=== PATIENT | female | born 1955 | race Caucasian/White ===

== ENCOUNTER 2019-08-28 10:40 | Outpatient (CLI) | payer MEDICARE, SELFPAY ==
--- NOTE | 2019-08-28 10:50 | MM_ITS ---
WS: [id number] BILATERAL SCREENING DIGITAL MAMMOGRAM WITH CAD HISTORY: SCREENING COMPARISON: 06/30/2016 and 06/20/2015 Bilateral CC and MLO views submitted. Computer aided detection analyzed. Breast composition: There are scattered areas of fibroglandular density. No suspicious masses, microc alcifications or architectural distortion. Stable nodule with scattered coarse calcifications at 12:0 0. No suspicious interval change within the breasts. MM/[place] [id number] IMPRESSION: BI-RADS: 2-Benign FOLLOW UP: 1 Year Follow-up
== END 2019-08-28 10:41 | disposition home or self-care (01) ==
LOC: RADSHAW 10:46
PROVIDERS: Family Provider Family Medicine; PCP Nurse Practitioner Family; Visit Provider Nurse Practitioner Family
DX: Z12.31 Encounter for screening mammogram for malignant neoplasm of breast (principal)
CPT/HCPCS: 77067

== ENCOUNTER 2019-09-28 06:07 | Day surgery (SDC) | payer MEDICARE, SELFPAY ==
[2019-09-27 12:12] VITALS: BMI 24.5
[2019-09-28 06:24] VITALS: BP 145/119; PULSE 112; RESP 18; TEMP 36.7; O2SAT 95
[2019-09-28] MEDS: sodium chloride 0.9% 1,000 ML 30 ML (06:32)
--- NOTE | 2019-09-28 06:54 | PM.HPUD ---
H&P update H&P Update: DATE OF SURGERY/PROCEDURE: 09/28/19 DATE H&P PERFORMED: 09/08/19 H&P UPDATE INFORMATION: H&P completed within last 30 days and No changes to prior documentation PREOP DIAGNOSIS: 1. Hematochezia2. Family history of colon cancer PLANNED PROCEDURE: Operation Date: 09/28/19 07:00 Proposed Procedures p Colonoscopy(Not Applicable) - Gurdeep Morrissey MD Conscious Sedation: Patient reassessed prior to sedation, with no change noted: Yes PHYSICAL EXAM: alert, oriented x 3, clear to auscultation bilaterally and regular rate & rhythm Full H&P Perinent History: Family History: Family History (Updated 09/27/19 @ 12:10 by Jeff Weston LPN) Other Colon cancer
--- NOTE | 2019-09-28 06:57 | ANES.PREANE2 ---
Pre-Anesthetic Assessment Pre-Anesthetic Assessment: Height/Weight: Height 1.7 m Weight 71.214 kg Temp Pulse Resp BP Pulse Ox 98.1 F 112 H 18 145/119 95 09/28/19 06:24 09/28/19 06:24 09/28/19 06:24 09/28/19 06:24 09/28/19 06:24 Preop Diagnosis: 1. Hematochezia2. Family history of colon cancer Proposed Procedure: Operation Date: 09/28/19 07:00 Proposed Procedures p Colonoscopy(Not Applicable) - Gurdeep Morrissey MD Was Beta Leonel taken within 24 hours: N/A Last intake: Intake Last Liquid Date 09/27/19 Last Liquid Time 20:30 Last Solid Date 09/27/19 Last Solid Time 20:30 Social: Social History: No alcohol and No tobacco Exam: Pre-Anes Outpt Exam: alert, oriented x 3, clear to auscultation bilaterally and regular rate & rhythm Airway: Submandibular: WNL Cervical ROM: WNL MP: 2 Dentition: Chipped History/ROS: No significant history except as noted and No significant complaints Pulmonary: Pulmonary: None reported CV/HEM: CV/HEM: None reported : : None reported Hepatic: Hepatic: None reported GI: GI: None reported Metabolic: Metabolic: Thyroid Musc/skel: Musc/skel: None reported Neuropsych: Neuropsych: Seizure Anesthetic Plan: ASA status: 2 Anesthesia: MAC Risk of > 500 ml blood loss (7ml/kg in children): No PFSH Anesthesia PFSH: Family History (Updated 09/27/19 @ 12:10 by Jeff Weston LPN) Other Colon cancer Data Anesthesia Cardiac Studies: No Data to Display
[2019-09-28 07:29] VITALS: BP 112/74; PULSE 86; RESP 18; TEMP 36.3; O2SAT 95
[2019-09-28 07:49] VITALS: BP 114/77; PULSE 83; RESP 18; O2SAT 94
== END 2019-09-28 08:05 | disposition home or self-care (01) ==
PROVIDERS: Family Provider Family Medicine; PCP Nurse Practitioner Family; Visit Provider Family Medicine
PROC: 0DJD8ZZ Inspection of Lower Intestinal Tract, Via Natural or Artificial Opening Endoscopic (ICD-10-PCS; CPT 45378; principal; 2019-09-28 07:00)
DX: K92.1 Melena (principal); Z80.0 Family history of malignant neoplasm of digestive organs; K64.8 Other hemorrhoids; D12.4 Benign neoplasm of descending colon; E78.5 Hyperlipidemia, unspecified; E03.9 Hypothyroidism, unspecified; K21.9 Gastro-esophageal reflux disease without esophagitis; Z82.49 Family history of ischemic heart disease and other diseases of the circulatory system; Z83.3 Family history of diabetes mellitus
CPT/HCPCS: 12345; 45384; 88305; J2001; J2704; J7030

== ENCOUNTER 2019-10-09 19:20 | Emergency (ER) | payer MEDICARE, SELFPAY ==
[2019-10-09 19:33] VITALS: BP 115/87; PULSE 114; RESP 16; TEMP 36.6; O2SAT 98; BMI 25.0
--- NOTE | 2019-10-09 19:46 | ECG_ITS ---
Measurements Intervals [place] Rate: 83 P: 41 OR: 129 QRS: 56 QRSD: 81 T: 5 QT: 353 QTc: 416 SINUS RHYTHM Compared to ECG 08/10/2018 20:13:08 No significant changes Electronically Signed On 10-10-2019 13:18:08 [employer] by Chen Jang M.D. [email or web address]
--- NOTE | 2019-10-09 19:46 | XR_ITS ---
WS: [id number] XR chest 1V portable [id number] REASON FOR EXAM: cough/congestion FINDINGS: The heart and mediastinal interfaces are normal. There are scattered granulomas well calcified in both lung alfred. There is no pneumonia, pleural effusion, pulmonary edema, or mass effect. Mild thickening of the apices particularly the right upper lung but no masses. XR/XR chest 1V portable [id number] IMPRESSION: Granulomatous changes No acute changes in either lung field.
[2019-10-09 20:02] LABS: Basophils % 0.3 %; Eosinophils # 0.1 10^3/uL (0.0-0.8); Hematocrit 47.7 % (37.0-47.0); Hemoglobin 16.4 g/dL (11.5-15.3); Lymphocytes # 2.7 10^3/uL (0.8-4.8); Lymphocytes % 30.1 %; Mean Corpuscular HGB Conc 34.4 g/dL (30.0-36.0); Mean Corpuscular Hemoglobin 28.7 pg (28.0-34.0); Mean Corpuscular Volume 83.4 fL (81-99); Mean Platelet Volume 9.9 fL (7.4-10.4); Monocytes # 0.6 10^3/uL (0.2-0.9); Monocytes % 6.8 %; Neutrophils # 5.5 10^3/uL (1.8-7.7); Neutrophils % 61.7 %; Nucleated Red Blood Cells % 0 %; Platelet Count 344 10^3/cmm (130-400); Red Blood Count 5.72 10^6/uL (4.1-5.3); White Blood Count 8.9 10^3/uL (4.0-10.0)
[2019-10-09 20:18] LABS: Alanine Aminotransferase 24 U/L (0-33); Albumin Level 3.9 g/dL (3.5-5.2); Alkaline Phosphatase 128 IU/L (35-105); Anion Gap 16.8 (5-19); Aspartate Amino Transferase 28 U/L (0-32); Blood Urea Nitrogen 15 mg/dL (8-23); Calcium 10.1 mg/dL (8.5-10.5); Carbon Dioxide 26 mmol/L (22-29); Chloride 93 mmol/L (98-107); Glomerular Filtration Rate 41.1 mL/min (90-130); Glucose 118 mg/dL (65-115); Sodium 133 mmol/L (136-145); Total Bilirubin 0.3 mg/dL (0.15-1.2); Total Protein 7.9 g/dL (6.6-8.7)
[2019-10-09 20:20] LABS: Troponin(5th) Baseline 12 ng/mL (0-10)
[2019-10-09 20:26] LABS: Potassium 2.8 mmol/L (3.5-5.1)
[2019-10-09 20:52] LABS: Magnesium 1.9 mg/dL (1.7-2.3)
[2019-10-09 21:04] VITALS: BP 108/83; PULSE 94; RESP 22; O2SAT 96
--- NOTE | 2019-10-09 21:14 | ED_ITS ---
Entered by Sarah Oliver, acting as scribe for Oct 09, 2019 19:20 HPI - Chest Pain General: Chief Complaint: Chest Pain Stated Complaint: cp Time Seen by Provider: 10/09/19 21:07 History of Present Illness: HPI narrative: Danitza is a nice 64-year-old female who comes in complaining of nauseousness and chest pain for the past 3 to 4 days. The pain is been nearly constant and she describes it as sharp and stabbing in nature in the center of her chest. She relates that she is under a great deal of increased stress recently from things going on in her life. She denies any other associated symptoms such as shortness of breath, diaphoresis, r adiation of her pain, or any other complaints. She denies any of the other exaggerated or alleviating factors. She denies having anything similar in the past. Associated symptoms: Deny abdominal pain, diaphoresis, dyspnea, fever(s), nausea or vomiting Review of Systems General: Reports: other (negative unless marked) Const: Denies: fever, chills, body aches, fatigue, malaise or diaphoresis Eyes: Denies: change in vision or blurry vision ENMT: Denies: throat pain, painful swallowing, hoarseness, ear pain, ear discharge, Change in hearing or nasal discharge Card: Reports: other (See HPI) Resp: Denies: shortness of breath, productive cough, non-productive cough, wheezing, coughing up blood or chest congestion GI: Denies: abdominal pain, nausea, vomiting, vomiting blood, coffee grounds in vomit, diarrhea, constipation, cramping, blood in stool or black tarry stool : Denies: flank pain, painful urination, urinary frequency, urinary urgency, decreased urine ouput, urinary incontinence or blood in urine Musc: Denies: neck pain, back pain, extremity pain, extremity swelling, joint pain, joint swelling, joint warmth or joint stiffness Skin/Breast: Denies: rash, skin tenderness or yellow skin Neuro: Denies: headache, numbness in extremities, weakness in extremities, changes in sensation, lack of coordination, difficulty walking, dizziness, vertigo or confusion Endo: Denies: excessive thirst, tired all the time, cold intolerance, excessive sweating, flushing or hot flashes David/Lymph: Denies: easy bruising, easy bleeding, petechiae or enlarged lymph nodes All/Imm: Denies: hives, throat swelling, tongue swelling, facial swelling or acute wheezing PFSH ED PFSH: Family History (Updated 09/27/19 @ 12:10 by Jeff Weston LPN) Other Colon cancer Social History Smoking and tobacco status: never smoked Physical Exam Const: COMMON NORMALS: no apparent distress, oriented x3, no limitations, healthy appearing and well nourished EXAM LIMITATIONS: no altered mental s tatus GENERAL APPEARANCE: cooperative, well kempt and well developed ORIENTATION/CONSCIOUSNESS: Yes awake HENMT: COMMON NORMALS: normocephalic, head/scalp atraumatic, hearing grossly normal bilaterally, external ears normal, EAC's normal, external nose normal and moist oral mucous membranes HEAD & SCALP: normal to inspection, normocephalic and atraumatic FACE & SINUS: normal facial exam and face symmetric NOSE: external nose normal and nares normal EXTERNAL EAR: Yes external ears normal EXTERNAL AUDITORY CANAL: EAC's normal MOUTH: oral and palatal mucosa normal and tongue normal Eye: COMMON NORMALS: PERRL, EOMs intact bilaterally, conjunctivae normal and no scleral icterus GENERAL EYE: normal appearance of both eyes and normal light reflex CONJUNCTIVA: Yes conjunctivae normal SCLERA: sclerae normal CORNEA: Yes corneas normal PUPIL: Yes PERRL DIRECT OPHTHALMOSCOPY: Yes normal light reflex Neck/C-Spine: COMMON NORMALS: full ROM, no lymphadenopathy, supple and no meningeal signs GENERAL: Yes normal visual inspection and Yes trachea midline CERVICAL SPINE: Yes cervical ROM normal Chest: CHEST: No crepitus and Yes localized rib tenderness with anteroposterior compression Resp: COMMON NORMALS: normal respiratory effort, no retractions, no use of accessory muscles and clear to auscultation bilaterally EFFORT & INSPECTION: Yes able to speak in complete sentences AUSCULTATION: clear to auscultation bilaterally Cardio: JUGULAR VENOUS DISTENTION: no JVD GI: COMMON NORMALS: soft to palpation, non-tender, no hepatosplenomegaly and no masses INSPECTION: Yes normal to inspection PALPATION: Yes soft and Yes no hepatosplenomegaly : COMMON NORMALS: Yes no CVA tenderness BLADDER/KIDNEY EXAM: Yes no CVA tenderness Back/Pelvis: COMMON NORMALS: no CVA tenderness, thoracic and lumbar spine normal to inspection, no thoracic nor lumbar tenderness and thoraco-lumbar ROM normal Extremity: COMMON NORMALS: normal to inspection, full ROM, normal capillary refill, no joint enlargement, no clubbing, cyanosis or edema and no calf tenderness Neuro: COMMON NORMALS: oriented x3, CN's II-XII intact bilaterally, moves all extremities, no focal motor deficits and no sensory deficits noted MENINGEAL SIGNS: Yes no meningeal signs Psych: COMMON NORMALS: mental status grossly normal, thought process normal, cooperative, affect normal, speech normal and activity/motor behavior normal APPEARANCE: Yes well kempt SPEECH: Yes normal speech THOUGHT PROCESS: normal thought process Skin: COMMON NORMALS: no rashes or lesions noted, skin turgor normal, no jaundice, no petechiae and no mottling GENERAL SKIN EXAM: no rashes or lesions noted and turgor normal Course Vital Signs: Vital signs: Vital Signs Temperature 97.8 F 10/09/19 19:33 Pulse Rate 56 L 10/09/19 23:49 Respiratory Rate 18 10/09/19 23:49 Blood Pressure 126/102 10/09/19 23:49 Pulse Oximetry 98 10/09/19 23:49 MDM - Chest Pain MDM Narrative: Medical decision making narrative: Danitza is a nice 64-year-old female who comes went with a 4-day history of nearly constant sharp stabbing chest pain. There are no associated symptoms with this at all. Her d-dimer is negative and her cardiac enzymes have not elevated consistent with acute coronary syndrome as described by the [facility] chest pain protocol. The patient was offered admission for formal cardiac rule out but she has declined. She would like to go home. I see no sign of acute coronary syndrome, aortic dissection, pulmonary embolism or other acute life threat. I think the patient symptoms are most consistent with costochondritis. Nonetheless the patient was offered admission but she has declined. She has chest pain-free at this time. She does agree to follow-up with her doctor or return here if necessary. Lab Data: Attestation: I reviewed the patient's lab results. Labs: Lab Results 10/09/19 10/09/19 10/09/19 Range/Units 19:54 19:54 19:54 WBC 8.9 (4.0-10.0) 10^3/ uL RBC 5.72 H (4.1-5.3) 10^6/u L Hgb 16.4 H (11.5-15.3) g/dL Hct 47.7 H (37.0-47.0) % MCV 83.4 (81-99) fL MCH 28.7 (28.0-34.0) pg MCHC 34.4 (30.0-36.0) g/dL RDW 12.0 L (12.1-15.1) % Plt Count 344 (130-400) 10^3/c mm MPV 9.9 (7.4-10.4) fL Neut % (Auto) 61.7 % Lymph % (Auto) 30.1 % Johnson % (Auto) 6.8 % Eos % (Auto) 1.0 % Baso % (Auto) 0.3 % Neut # (Auto) 5.5 (1.8-7.7) 10^3/u L Lymph # (Auto) 2.7 (0.8-4.8) 10^3/u L Johnson # (Auto) 0.6 (0.2-0.9) 10^3/u L Eos # (Auto) 0.1 (0.0-0.8) 10^3/u L Baso # (Auto) 0.0 (0.0-0.1) 10^3/u L Nucleated RBC % (a uto) 0 % Nucleated RBCs # 0.0 /100WBC D-Dimer (0-0.59) ug/mIFE U Sodium 133 L (136-145) mmol/L Potassium 2.8 L* (3.5-5.1) mmol/L Chloride 93 L (98-107) mmol/L Carbon Dioxide 26 (22-29) mmol/L Anion Gap 16.8 (5-19) BUN 15 (8-23) mg/dL Creatinine 1.3 H (0.5-0.9) mg/dL GFR Calculation 41.1 L (90-130) mL/min Glucose 118 H (65-115) mg/dL Calcium 10.1 (8.5-10.5) mg/dL Magnesium (1.7-2.3) mg/dL Total Bilirubin 0.3 (0.15-1.2) mg/dL AST 28 (0-32) U/L ALT 24 (0-33) U/L Alkaline Phosphata se 128 H (35-105) IU/L Troponin T Baselin e 12 H (0-10) ng/mL Troponin T 120 Min parker (0-10) ng/mL Delta Troponin T (0-10) ABS# Total Protein 7.9 (6.6-8.7) g/dL Albumin 3.9 (3.5-5.2) g/dL Globulin 4.0 (1.3-4.6) g/dL 10/09/19 10/09/19 10/09/19 Range/Units 19:54 19:54 21:42 WBC (4.0-10.0) 10^3/ uL RBC (4.1-5.3) 10^6/u L Hgb (11.5-15.3) g/dL Hct (37.0-47.0) % MCV (81-99) fL MCH (28.0-34.0) pg MCHC (30.0-36.0) g/dL RDW (12.1-15.1) % Plt Count (130-400) 10^3/c mm MPV (7.4-10.4) fL Neut % (Auto) % Lymph % (Auto) % Johnson % (Auto) % Eos % (Auto) % Baso % (Auto) % Neut # (Auto) (1.8-7.7) 10^3/u L Lymph # (Auto) (0.8-4.8) 10^3/u L Johnson # (Auto) (0.2-0.9) 10^3/u L Eos # (Auto) (0.0-0.8) 10^3/u L Baso # (Auto) (0.0-0.1) 10^3/u L Nucleated RBC % (a uto) % Nucleated RBCs # /100WBC D-Dimer 0.42 (0-0.59) ug/mIFE U Sodium (136-145) mmol/L Potassium (3.5-5.1) mmol/L Chloride (98-107) mmol/L Carbon Dioxide (22-29) mmol/L Anion Gap (5-19) BUN (8-23) mg/dL Creatinine (0.5-0.9) mg/dL GFR Calculation (90-130) mL/min Glucose (65-115) mg/dL Calcium (8.5-10.5) mg/dL Magnesium 1.9 (1.7-2.3) mg/dL Total Bilirubin (0.15-1.2) mg/dL AST (0-32) U/L ALT (0-33) U/L Alkaline Phosphata se (35-105) IU/L Troponin T Baselin e (0-10) ng/mL Troponin T 120 Min parker 12.17 H (0-10) ng/mL Delta Troponin T 0.17 (0-10) ABS# Total Protein (6.6-8.7) g/dL Albumin (3.5-5.2) g/dL Globulin (1.3-4.6) g/dL Imaging Data^: CXR: My impression: No acute cardiopulmonary findings. EKG Data^: EKG 1: Attestation: I personally reviewed and interpreted this EKG as follows: EKG interpretation date: 10/09/19 Interpretation: Sinus tachycardia at 100 beats a minute, normal axis, nonspecific ST and T wave changes, baseline wandering artifact. EKG 2: Attestation: I personally reviewed and interpreted this EKG as follows: EKG interpretation date: 10/09/19 EKG interpretation time: 21:29 Interpretation: Normal sinus rhythm at 83 beats a minute, normal axis, normal intervals, no blocks, no acute ST-T wave changes. Discharge Plan Discharge Patient Disposition: Home, Self-Care Clinical Impression: Costalchondritis Chest pain Qualifiers: Chest pain type: intercostal pain Qualified Code(s): R07.82 - Intercostal pain Condition: Stable Prescriptions: New naproxen 250 mg tablet 250 mg PO Q12H Qty: 20 RF: 0 No Action levothyroxine 88 mcg tablet 88 mcg PO DAILY RF: 0 rosuvastatin 20 mg tablet 20 mg PO DAILY RF: 0 duloxetine 60 mg capsule,delayed release(DR/EC) 60 mg PO BEDTIME RF: 0 Discharge Orders: Discharge Order (Routine); Ordered 10/09/19 Ordered By: Scarlet Peck Referrals: Allie Stephens [Primary Care Provider] - 1-3 days Lorenzo Cedillo DO [Family Provider] - Discharge Diet: Usual diet Discharge Activity: Increase activity as tolerated Patient Instructions: Chest Pain - Chest Wall, Chest Pain (ED), Costochondritis (ED) Activity Restrictions/Additional Instructions: Please return to the ER immediately for any of the signs or symptoms listed on your discharge instruction sheets, worsening/changing of your symptoms, you are not getting better as quickly as expected, or for ANY other cause or concerns. I have offered admission for formal cardiac rule out and stress testing but you have declined. Of course any heart problem can be life-threatening so if you change your mind or your symptoms worsen at all please return to the ER for recheck. Discharge Date/Time: 10/09/19 23:49 Coding Level of Care Code ED Hotel Bag[employer] Handler for Chg Fwd Exam Comprehensive The documentation recorded by the Benito duncan Ashley, accurately reflects the service I personally performed and the decisions made by , Scarlet Peck Oct 09, 2019 19:20
[2019-10-09 21:54] VITALS: RESP 20
[2019-10-09] MEDS: aspirin 325 mg Tablet PO (21:54)
[2019-10-09] MEDS: ondansetron 2 mg/ML SDV 2 mL 4 MG IVP (21:54)
[2019-10-09] MEDS: morphine 4 mg/mL SDV 1 mL IVP (21:54)
[2019-10-09 21:55] LABS: D Dimer 0.42 ug/mIFEU (0-0.59)
[2019-10-09 22:03] LABS: Troponin 5 2HR 12.17 ng/mL (0-10); Troponin 5 2HR Delta 0.17 ABS# (0-10)
[2019-10-09] MEDS: ketorolac 30 mg/mL INJ 10 MG IVP (23:16)
[2019-10-09 23:49] VITALS: BP 126/102; PULSE 56; RESP 18; O2SAT 98
== END 2019-10-09 23:49 | disposition home or self-care (01) ==
PROVIDERS: Physician Assistant; Emergency Provider Emergency Medicine; Family Provider Family Medicine; PCP Nurse Practitioner Family
DX: M94.0 Chondrocostal junction syndrome [Tietze] (principal)
CPT/HCPCS: 36415; 71045; 80053; 83735; 84484; 85025; 85378; 93005; 96374; 96375; 99282; 99284; J1885; J2270; J2405

== ENCOUNTER 2019-11-02 08:41 | Outpatient (CLI) | payer MEDICARE, SELFPAY ==
[2019-11-02 09:21] VITALS: BMI 28.3
--- NOTE | 2019-11-02 09:22 | ECG_ITS ---
NAME OF STUDY: LEXISCAN SESTAMIBI STRESS TEST INDICATION: Chest Pain, LEXISCAN STRESS TEST ORDERING PHYSICIAN: [facility] CLINICAL INFORMATION: Chest pain INTERPRETATION: 1. The patient was brought to the laboratory where Lexiscan was infused over 20 seconds. The resting blood pressure was 139/89. Maximum blood pressure was 162/98. The resting heart rate was 75 beats per minute. The maximum heart rate is 134 beats per minute. 2. The baseline electrocardiogram reveals sinus rhythm and is a normal tracing 3. With Lexiscan infusion, there were no ST segment changes to suggest ischemia. 4. The patient experienced no symptoms or arrhythmias during the examination. CONCLUSION: 1. Unremarkable Lexiscan infusion. 2. Nuclear imaging to follow. Electronically Signed On 11-02-2019 15:50:09 CDT by Omkar Gomes M.D. [email or web address]
--- NOTE | 2019-11-02 09:22 | NMCV_ITS ---
NM william perf SPECT r/s* [id number] Danitza Leo Age: 64 Gender: F : 1955 Exam Date: 11/02/2019 10:27 Ordering Phys: Allie Stephens XX Technologist: STELLA Augustine Exam Location: [facility] Indications: CENTRAL CHEST PAIN STRESS TEST Please see separate stress test report in [facility] for full findings IMAGE PROTOCOL Rest/Stress 1 Lexiscan Day Radiopharmaceutical Dose (mCi) Administration Site Administered by Rest: Tc-99m 10.7 IV STELLA Augustine Sestamibi Stress:Tc-99m 32.6 IV STELLA Vargas Sestamibi Rest: 02-Nov-2019 60 Discovery 630 Stress: 02-Nov-2019 30 Discovery 630 0.4mg Lexiscan. Images obtained in supine and prone position. SPECT RESULTS Technical Quality: Excellent Raw Data Analysis: Normal Image Corrections: No attenuation or motion correction applied Summed Stress Score: 4 Summed Rest Score: 2 Summed Difference Score: 3 PERFUSION FINDINGS SPECT images demonstrate homogeneous tracer distribution throughout the myocardium. FUNCTIONAL RESULTS (calculated via Gated SPECT) Stress Image LV EF (%): 89 Stress EDV (mL):44 TID: 0.96 Stress ESV (mL):5 Rest Image LV EF (%): 89 FUNCTIONAL FINDINGS: There is normal left ventricular systolic function. IMPRESSIONS Myocardial perfusion imaging is normal and low probability for obstructive coronary artery disease. EKG segment will be documented separately. Danya Reyes MD (Electronically Signed) Final Date: 02 November 2019 15:24 S
[2019-11-02] MEDS: regadenoson 0.4 Mg/5 ml Syringe IVP (11:02)
[2019-11-02 11:08] VITALS: BP 150/104; PULSE 100
[2019-11-02] MEDS: ondansetron 2 mg/ML SDV 2 mL 4 MG IVP (11:12)
== END 2019-11-02 08:42 | disposition home or self-care (01) ==
PROVIDERS: Family Provider Nurse Practitioner Family; PCP Nurse Practitioner Family; Visit Provider Nurse Practitioner Family
DX: R07.9 Chest pain, unspecified (principal)
CPT/HCPCS: 78452; 93017; 96374; 96375; A9500; J2405; J2785

== ENCOUNTER 2019-11-09 11:58 | Outpatient (CLI) | payer MEDICARE, SELFPAY ==
--- NOTE | 2019-11-09 | XR_ITS ---
WS: [id number] LEFT RIBS, MULTIPLE VIEWS WITH PA CHEST HISTORY: RIB PAIN ON LEFT SIDE COMPARISON: 10/09/2019 Lungs and mediastinum: Hyperinflated lungs with scattered granulomata. No pneumothorax or pleural eff usion. Ribs: No rib fractures or bone destruction identified. XR/XR ribs LT mn 3V w CXR1V [id number] IMPRESSION: 1. No left-sided rib fracture identified. 2. Chronic emphysema and prior granulomatous disease.
== END 2019-11-09 11:59 | disposition home or self-care (01) ==
LOC: RADOUTREAD 11-12 08:25
PROVIDERS: Family Provider Nurse Practitioner Family; PCP Nurse Practitioner Family; Visit Provider Nurse Practitioner
DX: Z01.89 Encounter for other specified special examinations (principal)

== ENCOUNTER → 2025-05-08 13:57 | Outpatient (BNVA) | payer MEDICARE, SELFPAY | PROVIDERS: Family Provider Nurse Practitioner Family; PCP Nurse Practitioner Family; Visit Provider Surgery | DX: Z12.11 Encounter for screening for malignant neoplasm of colon (principal); R03.0 Elevated blood-pressure reading, without diagnosis of hypertension | CPT/HCPCS: 99204 ==

== ENCOUNTER 2025-05-10 09:47 | Outpatient (CLI) | payer MEDICARE, SELFPAY ==
--- NOTE | 2025-05-10 09:55 | MM_ITS ---
WS: [id number] BILATERAL SCREENING DIGITAL TOMOSYNTHESIS MAMMOGRAM WITH CAD HISTORY: SCREENING COMPARISON: 08/28/2019, 06/30/2016 Bilateral CC and MLO views with tomosynthesis and synthetic mammography submitted. Computer aided detection analyzed. Breast composition: There are scattered areas of fibroglandular density. No suspicious masses, microcalcifications or architectural distortion. Benign coarse calcification with soft tissue 12:00 posterior LEFT breast is likely degenerating fibroid. Benign calcifications scattered within each breast oth erwise. No mass or distortion. MM/MM scr tomosynthesis [id number] IMPRESSION: BI-RADS: 2 - Benign. FOLLOW UP: 1 Year Follow-up
== END 2025-05-10 09:48 | disposition home or self-care (01) ==
LOC: RAD 09:50
PROVIDERS: PCP Family Medicine; Visit Provider Family Medicine
DX: Z12.31 Encounter for screening mammogram for malignant neoplasm of breast (principal); R92.323 Mammographic fibroglandular density, bilateral breasts; D24.2 Benign neoplasm of left breast; R92.1 Mammographic calcification found on diagnostic imaging of breast
CPT/HCPCS: 77063; 77067

== ENCOUNTER 2025-06-06 08:07 | Day surgery (SDC) | payer MEDICARE, SELFPAY ==
[2025-06-06 08:27] VITALS: BMI 21.6
[2025-06-06 08:32] VITALS: BP 129/80; PULSE 90; RESP 18; TEMP 36.9; O2SAT 94
--- NOTE | 2025-06-06 08:54 | P.HPUD_ITS ---
Surgery/Procedure H&P Update DATE OF PROCEDURE: June 06, 2025 DATE H&P PERFORMED: 05/08/25 H&P UPDATE INFORMATION: I have reviewed H&P completed within last 30 days, I have examined patient prior to procedure, No changes to prior documentation, H&P is in [facility] EMR on date indicated and Risks and benefits of the procedure reviewed PLANNED PROCEDURE: Operation Date: 06/06/25 10:35 Proposed Procedures p Colonoscopy 51190 G0105 Z12.11(Not Applicable) - Roberto Odonnell MD
--- NOTE | 2025-06-06 09:45 | ANES.PREANE2 ---
Pre-Anesthetic Assessment Height/Weight: Height 1.6 m Weight 55.338 kg Temp Pulse Resp BP Pulse Ox O2 Del Method 98.5 F 90 18 129/80 94 Room Air 06/06/25 08:32 06/06/25 08:32 06/06/25 08:32 06/06/25 08:32 06/06/25 08:32 06/06/25 08:32 Preop Diagnosis: Screen Operation Date: 06/06/25 10:35 Proposed Procedures p Colonoscopy 32552 G0105 Z12.11(Not Applicable) - Roberto Odonnell MD Familial anesthetic complications: none Was Beta Leonel taken within 24 hours: N/A Was Clonidine taken within 24 hours: N/A Last intake: Intake Last Liquid Date 06/05/25 Last Liquid Time 20:00 Last Solid Date 06/04/25 Last Solid Time 21:00 Social No alcohol and No tobacco Exam alert, oriented x 3, clear to auscultation bilaterally and regular rate & rhythm Airway Cervical ROM: within normal limits Mallampati: Class II Dentition: full History/ROS No significant complaints Pulmonary None reported CV/HEM HLD None reported Hepatic None reported GI None reported Metabolic Thyroid Disease (hypo) Musc/skel None reported Neuropsych None reported Anesthetic Plan ASA status: 2 Anesthesia: MAC Risk of > 500 ml blood loss (7ml/kg in children): No Medications/Allergies Home Medications ?Medication ?Instructions ?Recorded ?Confirmed ?Last Taken ?Type levothyroxine 88 mcg tablet 88 mcg PO DAILY 09/27/19 06/03/25 06/02/25 History rosuvastatin 20 mg tablet 20 mg PO DAILY 09/27/19 06/03/25 06/02/25 History sertraline 100 mg tablet 100 mg PO DAILY 05/08/25 06/03/25 06/02/25 History sertraline 50 mg tablet 50 mg PO DAILY 05/08/25 06/03/25 06/02/25 History meloxicam 7.5 mg tablet 7.5 mg PO DAILY PRN Pain 06/03/25 06/03/25 05/21/25 History solifenacin 5 mg tablet 5 mg PO DAILY 06/03/25 06/03/25 06/02/25 History Allergies Allergy/AdvReac Type Severity Reaction Status Date / Time codeine Allergy ADR-Vomitin Verified 05/08/25 13:58 g Current Medications Generic Name Dose Route Start Last Admin Trade Name Freq PRN Reason Stop Dose Admin Sodium Chloride 1,000 mls @ 15 mls/hr 06/06/25 08:22 06/06/25 09:27 Sodium Chloride 0.9% IV 06/07/25 08:21 15 mls/hr .Q24H PRN Administration COLONOSCOPY FLUIDS PFSH Anesthesia Family History Other Colon cancer Social History Smoking and tobacco/nicotine status: never used tobacco/nicotine Data Anesthesia Cardiac Studies: Sestamibi Stress Test (Cardiology) 11/02/19
[2025-06-06 10:25] VITALS: BP 109/61; PULSE 66; RESP 16; TEMP 36.6; O2SAT 98
[2025-06-06 10:38] VITALS: BP 108/64; PULSE 67; RESP 16; O2SAT 97
--- NOTE | 2025-06-06 11:00 | ANE.PACU2 ---
Inpatient post-anesthesia follow up: Airway intact: Yes Vital signs: Temperature 97.9 F Pulse Rate 67 Respiratory Rate 16 Blood Pressure 108/64 Pulse Oximetry 97 Oxygen Delivery Me thod Room Air Oxygen Flow Rate Fraction of Inspir ed Oxygen Hydration adequate: Yes Nausea and vomiting: No Pain level: 1 Mental status: Baseline
== END 2025-06-06 11:00 | disposition home or self-care (01) ==
PROVIDERS: PCP Family Medicine; Visit Provider Surgery
PROC: 0DJD8ZZ Inspection of Lower Intestinal Tract, Via Natural or Artificial Opening Endoscopic (ICD-10-PCS; CPT 45378; principal; 2025-06-06 10:35)
DX: Z12.11 Encounter for screening for malignant neoplasm of colon (principal); D12.3 Benign neoplasm of transverse colon; E78.5 Hyperlipidemia, unspecified; E03.9 Hypothyroidism, unspecified; Z80.0 Family history of malignant neoplasm of digestive organs
CPT/HCPCS: 45385; 88305; J2704; J7030

== ENCOUNTER → 2025-06-25 07:53 | Outpatient (BNVA) | payer MEDICARE, SELFPAY | PROVIDERS: PCP Family Medicine; Visit Provider Surgery | DX: Z09 Encounter for follow-up examination after completed treatment for conditions other than malignant neoplasm (principal); R03.0 Elevated blood-pressure reading, without diagnosis of hypertension | CPT/HCPCS: 99213 ==

== ENCOUNTER 2025-07-10 11:28 | Outpatient (CLI) | payer MEDICARE, SELFPAY ==
--- NOTE | 2025-07-10 11:34 | XR_ITS ---
WS: [id number] XR knee RT 4V [id number] REASON FOR EXAM: R KNEE JOINT PAIN X 3 MONTH FINDINGS: No fracture or focal bone lesion. The medial and lateral knee joint space and the patellofemoral joint spaces are intact and relatively well preserved. No significant subchondral bone abnormality or osteophytosis. XR/XR knee RT 4V [id number] IMPRESSION: No significant bone or joint abnormality.
== END 2025-07-10 11:29 | disposition home or self-care (01) ==
LOC: RAD 11:29
PROVIDERS: PCP Family Medicine; Visit Provider Family Medicine
DX: M25.561 Pain in right knee (principal)
CPT/HCPCS: 73564

== ENCOUNTER → 2025-07-25 08:24 | Outpatient (BNVA) | payer MEDICARE, SELFPAY | PROVIDERS: PCP Family Medicine; Visit Provider Orthopaedic Surgery | DX: M17.0 Bilateral primary osteoarthritis of knee (principal) | CPT/HCPCS: 73560; 73565; 99204 ==